=== PATIENT | male | born 1935 | race Caucasian/White ===

== ENCOUNTER 2017-07-24 11:46 | Emergency (ER) | payer OTHER, MEDICARE ==
[~2017-07-24] VITALS: Ht 162.6 cm; Wt 55.3 kg
[2017-07-24] MEDS ORDERED: ULTRAM 50MG TAB50 MG PO (13:36)
[2017-07-24 14:02] VITALS: BP 101/54
== END 2017-07-24 14:03 | disposition home or self-care (01) ==
LOC: ER 11:46
DX: S43.004A Unspecified dislocation of right shoulder joint, initial encounter (principal); I25.10 Atherosclerotic heart disease of native coronary artery without angina pectoris; W10.9XXA Fall (on) (from) unspecified stairs and steps, initial encounter; Y93.89 Activity, other specified; Y92.59 Other trade areas as the place of occurrence of the external cause; Y99.8 Other external cause status